=== PATIENT | male | born 1970 | race Asian ===

== ENCOUNTER 2018-04-13 11:44 | Outpatient (CLI) | payer BC ==
[2018-04-13 12:14] LABS: PLATELET COUNT 307 K/uL (142-355)
[2018-04-13 12:50] LABS: POTASSIUM 4.1 mmol/L (3.6-5.2)
== END 2018-04-13 23:28 | disposition home or self-care (01) ==
LOC: LABW 11:44
PROVIDERS: Internal Medicine
DX: Z00.00 Encounter for general adult medical examination without abnormal findings (principal); E78.00 Pure hypercholesterolemia, unspecified
CPT/HCPCS: 36415; 80053; 80061; 81000; 84153; 84443; 85027